=== PATIENT | male | born 1980 | race Caucasian/White ===

== ENCOUNTER → 2023-03-30 | Outpatient (CLI) | payer OTHER ==
--- NOTE | 2023-03-30 14:04 | DIREP ---
PROCEDURE:XRAY ELBOW 2VWS-LT COMPARISON:None. INDICATIONS:Encounter for general adult medical examination. FINDINGS: BONES:Normal. JOINTS:Mild osteoarthritis. No displaced anterior or posterior fat pads. SOFT TISSUES:Normal. OTHER:Normal. CONCLUSION:Mild elbow osteoarthritis Dictated by: Yobany Maynard DO on 03/30/2023 at 02:01 PM
== END | disposition home or self-care (01) ==
LOC: RAD 12:41
PROVIDERS: ATTEND Nurse Practitioner
DX: M19.022 Primary osteoarthritis, left elbow (principal)
CPT/HCPCS: 73070-LT